=== PATIENT | female | born 1945 | race Caucasian/White ===

== ENCOUNTER 2016-07-18 00:06 | Emergency (ER) | payer MEDICARE, OTHER ==
[~2016-07-18] VITALS: Ht 165.1 cm; Wt 65.0 kg
[2016-07-18] MEDS ORDERED: LORazepam 2 MG/ML VIAL IV PUSH ONE ×2 (00:30→03:15)
[2016-07-18] MEDS ORDERED: SODIUM CHLOR 0.9% 250 ML INJ 250 ML IV ONE (00:30)
[2016-07-18] MEDS ORDERED: RISP1SOL PO (00:31)
[2016-07-18] MEDS ORDERED: VALP250S2 PO (00:31)
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
[2016-07-18 01:04] LABS: HEMATOCRIT 29.8 % (35.0-46.0); MEAN CELL VOLUME 75.7 FL (80.0-100.0); MEAN CORPUSCULAR HEMOGLOBIN 24.4 PG (27.0-34.0); MEAN CORPUSCULAR HGB CONC 32.3 % (32.0-36.0); PLATELET COUNT 87 TH/MM3 (150-450); RED BLOOD COUNT 3.94 MIL/MM3 (4.00-5.30); RED CELL DISTRIBUTION WIDTH 16.9 % (11.6-17.2)
[2016-07-18 01:07] LABS: HEMO FLAGS AUTO DIFF
[2016-07-18 01:12] LABS: PROTHROMBIN TIME - PATIENT 11.2 SEC (9.8-11.6)
[2016-07-18 01:25] VITALS: BP 124/60; PULSE 83; RESP 16; TEMP 98.5; O2SAT 100
[2016-07-18 01:26] LABS: ALT (GPT) 8 U/L (10-53); ANION GAP 6 MEQ/L (5-15); AST (GOT) 13 U/L (15-37); BICARBONATE 29.6 MEQ/L (21.0-32.0); BLOOD UREA NITROGEN 15 MG/DL (7-18); CHLORIDE 105 MEQ/L (98-107); GLOMERULAR FILTRATION RATE 66 ML/MIN (>89); POTASSIUM 3.9 MEQ/L (3.5-5.1); SODIUM (NA) 141 MEQ/L (136-145)
[2016-07-18 01:29] LABS: ACETAMINOPHEN LESS THAN 2.0 MCG/ML (10.0-30.0); ALKALINE PHOSPHATASE 62 U/L (45-117); TOTAL BILIRUBIN ADULT 0.3 MG/DL (0.2-1.0)
[2016-07-18 01:32] VITALS: O2SAT 100
[2016-07-18 01:33] LABS: BANDS 1 % (0-6); EOSINOPHILS 1 % (0-4); NEUTROPHIL # MANUAL DIFF 2.6 TH/MM3 (1.8-7.7); POLYS (SEG NEUTROPHILS) 50 % (16-70); SCAN/DIFF FINAL DIFF MANUAL; WBC DIFF SAMPLE 100
[2016-07-18 01:34] LABS: PLATELET ESTIMATE SMEAR LOW (NORMAL); PLATELET MORPHOLOGY NORMAL (NORMAL)
[2016-07-18 03:51] LABS: BLOOD, URINE NEG (NEG); GLUCOSE,URINE NEG (NEG); KETONE, URINE NEG (NEG); NITRITE,URINE NEG (NEG); PH, URINE 7.5 (5.0-8.5); SQUAMOUS EPITHELIAL CELL URINE <1 /hpf (0-5); URINE COLOR LIGHT-YELLOW (YELLW/STRAW)
[2016-07-18 03:52] LABS: COMMENT (UR) CULT NOT INDICATED; CULTURE IF INDICATED CULT NOT INDICATED
[2016-07-18 03:57] LABS: AMPHETAMINE, URINE NEG (NEG); BARBITURATES, URINE NEG (NEG); COCAINE, URINE NEG (NEG)
--- NOTE | 2016-07-18 04:13 | RADRPT ---
EXAM DATE/TIME: 07/18/2016 03:55 [facility] COMPARISON: No previous studies available for comparison. INDICATIONS : Altered mental status. RADIATION DOSE: 29.78 CTDIvol (mGy) MEDICAL HISTORY : Dementia. Alzheimer's. SURGICAL HISTORY : None. ENCOUNTER: Initial ACUITY: 1 day PAIN SCALE: Non-responsive LOCATION: cranial TECHNIQUE: Multiple contiguous axial images were obtained of the head. Using automated exposure control and adj ustment of the mA and/or kV according to patient size, radiation dose was kept as low as reasonably a chievable to obtain optimal diagnostic quality images. FINDINGS: CEREBRUM: The ventricles are normal for age. No evidence of midline shift, mass lesion, hemorrhage or acute in farction. No extra-axial fluid collections are seen. POSTERIOR FOSSA: The cerebellum and brainstem are intact. The 4th ventricle is midline. The cerebellopontine angle i s unremarkable. EXTRACRANIAL: The visualized portion of the orbits is intact. SKULL: The calvaria is intact. No evidence of skull fracture. CONCLUSION: 1. No evidence of acute intracranial pathology. No masses are identified. Russell Bustillos MD on July 18, 2016 at 4:09 Board Certified Radiologist. This report was verified electronically.
[2016-07-18 04:40] VITALS: BP 98/54; PULSE 71; RESP 15; O2SAT 95
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
[2016-07-18 09:36] VITALS: BP 122/85; PULSE 62; RESP 18; O2SAT 96
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
[2016-07-18 12:00] VITALS: BP 133/65; PULSE 68; RESP 20; O2SAT 98
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
== END 2016-07-18 16:46 | disposition home or self-care (01) ==
LOC: NEPE 00:06 → NEPA 16:46
DX: F03.91 Unspecified dementia, unspecified severity, with behavioral disturbance (principal); G30.9 Alzheimer's disease, unspecified; F20.9 Schizophrenia, unspecified; G40.909 Epilepsy, unspecified, not intractable, without status epilepticus; Z88.5 Allergy status to narcotic agent
CPT/HCPCS: 70450; 72125; 80053; 80164; 80307; 80320; 81001; 85007; 85027; 85610; 96374; 96376; 99284; J2060; J7050; P9612; 80329; G0480

== ENCOUNTER 2016-07-20 15:32 | Emergency (ER) | payer MEDICARE, OTHER ==
[~2016-07-20] VITALS: Ht 170.2 cm; Wt 75.0 kg
[~2016-07-20 15:32] MED LIST: RISP1SOL PO; VALP250S2 PO
[2016-07-20 15:54] VITALS: BP 120/60; PULSE 76; RESP 20; TEMP 98.5; O2SAT 94
[2016-07-20] MEDS ORDERED: SODIUM CHLOR 0.9% 1000 ML INJ 1,000 ML IV ONE (16:08)
[2016-07-20] MEDS ORDERED: SODIUM CHLORIDE 0.9% FLUSH 5 ML FLUSH IVF PRN (16:15)
[2016-07-20] MEDS ORDERED: LORazepam 2 MG/ML VIAL IVS ONE (16:15)
--- NOTE | 2016-07-20 16:19 | PD ---
HPI Chief Complaint: Altered Mental Status Time Seen by Provider: 16:04 Travel History International Travel<30 days: No Contact w/Intl Traveler<30days: No Traveled to known affect area: No History of Present Illness HPI Patient is a 71-year-old female who presents to emergency room from [facility] for evaluation of altered mental status. Patient has a history of Alzheimer's disease, dementia with behavioral disturbance, personality and behavioral disorders, and history of seizures currently on valproic acid 250 mg twice a day as well as risperidone 0.25 mg twice a day. As per OK, patient has been more agitated and more combative today when compared to baseline. Patient here for evaluation of altered mental status. Patient unable to provide history of present illness in the emergency room, patient with flight of ideas. PFSH Past Medical History Diminished Hearing: No ?: Not Menopausal: Yes Social History Alcohol Use: No Tobacco Use: No Substance Use: No Allergies-Medications (Allergen,Severity, Reaction): Coded Allergies: Codeine (Verified Allergy, Unknown, 07/18/16) Reported Meds & Prescriptions Reported Meds & Active Scripts Active Reported Valproic Acid Liq 250 Mg/5 Ml Syp 250 Mg PO BID Risperidone Liq (Risperidone) 1 Mg/Ml Soln 0.25 Mg PO BID Review of Systems ROS Limitations: Altered Mental Status General / Constitutional: No: Fever Eyes: No: Visual changes HENT: No: Headaches Cardiovascular: No: Chest Pain or Discomfort Respiratory: No: Shortness of Breath Gastrointestinal: No: Abdominal Pain Genitourinary: No: Dysuria Musculoskeletal: No: Pain Skin: No Rash Neurologic: No: Weakness Psychiatric: No: Depression Endocrine: No: Polydipsia Hematologic/Lymphatic: No: Easy Bruising Physical Exam Narrative GENERAL: aggitated, NAD SKIN: Warm and dry. HEAD: Atraumatic. Normocephalic. EYES: Pupils equal and round. No scleral icterus. No injection or drainage. ENT: No nasal bleeding or discharge. Mucous membranes pink and moist. NECK: Trachea midline. No JVD. CARDIOVASCULAR: Regular rate and rhythm. No murmur appreciated. RESPIRATORY: No accessory muscle use. Clear to auscultation. Breath sounds equal bilaterally. GASTROINTESTINAL: Abdomen soft, non-tender, nondistended. Hepatic and splenic margins not palpable. MUSCULOSKELETAL: No obvious deformities. No clubbing. No cyanosis. No edema. NEUROLOGICAL: Awake and alert. No obvious cranial nerve deficits. Motor grossly within normal limits. Normal speech. PSYCHIATRIC: Patient agitated with a flight of ideas Data Data Last Documented VS Vital Signs Date Time Temp Pulse Resp B/P Pulse Ox O2 Delivery O2 Flow Rate FiO2 07/20/16 22:24 72 16 101/58 95 07/20/16 19:35 Room Air 07/20/16 15:54 98.5 Orders Complete Blood Count With Diff (07/20/16 16:08) Valproic Acid (Depakene) (07/20/16 16:08) Drug Screen, Random Urine (07/20/16 16:08) Blood Glucose (07/20/16 16:08) Ecg Monitoring (07/20/16 16:08) Iv Access Insert/Monitor (07/20/16 16:08) Oximetry (07/20/16 16:08) Comprehensive Metabolic Panel (07/20/16 16:08) Sodium Chlor 0.9% 1000 Ml Inj (Ns 1000 M (07/20/16 16:08) Sodium Chloride 0.9% Flush (Ns Flush) (07/20/16 16:15) Lorazepam Inj (Ativan Inj) (07/20/16 16:15) Ua Includes Microscopic (07/20/16 16:08) Ct Brain W/O Iv Contrast(Rout) (07/20/16 ) Electrocardiogram (07/20/16 ) Restraints Non-Violent SARAH.Q3H (07/20/16 17:10) Labs Laboratory Tests Test 07/20/16 07/20/16 16:55 17:20 White Blood Count 4.7 TH/MM3 Red Blood Count 4.21 MIL/MM3 Hemoglobin 10.0 GM/DL Hematocrit 31.9 % Mean Corpuscular Volume 75.8 FL Mean Corpuscular Hemoglobin 23.7 PG Mean Corpuscular Hemoglobin 31.3 % Concent Red Cell Distribution Width 17.0 % Platelet Count 80 TH/MM3 Mean Platelet Volume 10.0 FL Neutrophils (%) (Auto) 56.4 % Lymphocytes (%) (Auto) 26.7 % Monocytes (%) (Auto) 15.6 % Eosinophils (%) (Auto) 1.0 % Basophils (%) (Auto) 0.3 % Neutrophils # (Auto) 2.6 TH/MM3 Lymphocytes # (Auto) 1.2 TH/MM3 Monocytes # (Auto) 0.7 TH/MM3 Eosinophils # (Auto) 0.0 TH/MM3 Basophils # (Auto) 0.0 TH/MM3 CBC Comment DIFF FINAL Differential Comment Sodium Level 139 MEQ/L Potassium Level 4.4 MEQ/L Chloride Level 105 MEQ/L Carbon Dioxide Level 27.7 MEQ/L Anion Gap 6 MEQ/L Blood Urea Nitrogen 15 MG/DL Creatinine 0.78 MG/DL Estimat Glomerular Filtration 72 ML/MIN Rate Random Glucose 88 MG/DL Calcium Level 8.2 MG/DL Total Bilirubin 0.3 MG/DL Aspartate Amino Transf 19 U/L (AST/SGOT) Alanine Aminotransferase 10 U/L (ALT/SGPT) Alkaline Phosphatase 59 U/L Total Protein 7.7 GM/DL Albumin 2.6 GM/DL Valproic Acid (Depakene) Level 54 MCG/ML Urine Color YELLOW Urine Turbidity CLEAR Urine pH 6.5 Urine Specific [place] 1.011 Urine Protein NEG mg/dL Urine Glucose (UA) NEG mg/dL Urine Ketones NEG mg/dL Urine Occult Blood TRACE Urine Nitrite NEG Urine Bilirubin NEG Urine Urobilinogen 4.0 MG/DL Urine Leukocyte Esterase NEG Urine RBC 2 /hpf Urine WBC 1 /hpf Urine Mucus FEW /lpf Microscopic Urinalysis Comment Urine Opiates Screen NEG Urine Barbiturates Screen NEG Urine Amphetamines Screen NEG Urine Benzodiazepines Screen NEG Urine Cocaine Screen NEG Urine Cannabinoids Screen NEG MDM Medical Decision Making Medical Screen Exam Complete: Yes Emergency Medical Condition: Yes Interpretation(s) EKG: NSR at 98 BPM, qt/qtc: 369/424, no acute changes Vital Signs Date Time Temp Pulse Resp B/P Pulse Ox O2 Delivery O2 Flow Rate FiO2 07/20/16 15:54 98.5 76 20 120/60 94 Differential Diagnosis UTI, electrolyte abnormality, acute delirium, intracranial hemorrhage, medication reaction Narrative Course Patient is a 71-year-old female who presents to emergency room with complaints of altered mental status. As per patient's half-way, patient has dementia and a history of behavioral disturbance that baseline. Reports that she has been acting more aggressive today. Plan to obtain basic labs on patient as well as a ua. ct of head to evaluate for possible intracranial pathology pt signed out to care of dr lopez at change of shift Estefani Carlin DO Jul 20, 2016 16:18
[2016-07-20 17:35] LABS: AUTOMATED NEUTROPHIL # 2.6 TH/MM3 (1.8-7.7); BASOPHIL % 0.3 % (0.0-2.0); HEMATOCRIT 31.9 % (35.0-46.0); LYMPH % 26.7 % (9.0-44.0); LYMPHOCYTE # 1.2 TH/MM3 (1.0-4.8); MEAN CELL VOLUME 75.8 FL (80.0-100.0); MEAN CORPUSCULAR HEMOGLOBIN 23.7 PG (27.0-34.0); MEAN CORPUSCULAR HGB CONC 31.3 % (32.0-36.0); MONO % 15.6 % (0.0-8.0); NEUT % 56.4 % (16.0-70.0); PLATELET COUNT 80 TH/MM3 (150-450); RED BLOOD COUNT 4.21 MIL/MM3 (4.00-5.30); WHITE BLOOD COUNT 4.7 TH/MM3 (4.0-11.0)
--- NOTE | 2016-07-20 17:37 | PD ---
Physical Exam Date Seen by Provider: Jul 20, 2016 Time Seen by Provider: 17:36 Narrative The patient is a 71-year-old female was initially evaluated by the previous physician, Dr. Carlin. Please refer to the initial history, physical, diagnostic evaluation, and treatment modality plan. The patient was signed out of 5 PM with laboratory evaluation, UA, and CT pending. Data Data Last Documented VS Vital Signs Date Time Temp Pulse Resp B/P Pulse Ox O2 Delivery O2 Flow Rate FiO2 07/20/16 18:25 70 18 136/62 94 Room Air 07/20/16 15:54 98.5 Orders Complete Blood Count With Diff (07/20/16 16:08) Valproic Acid (Depakene) (07/20/16 16:08) Drug Screen, Random Urine (07/20/16 16:08) Blood Glucose (07/20/16 16:08) Ecg Monitoring (07/20/16 16:08) Iv Access Insert/Monitor (07/20/16 16:08) Oximetry (07/20/16 16:08) Comprehensive Metabolic Panel (07/20/16 16:08) Sodium Chlor 0.9% 1000 Ml Inj (Ns 1000 M (07/20/16 16:08) Sodium Chloride 0.9% Flush (Ns Flush) (07/20/16 16:15) Lorazepam Inj (Ativan Inj) (07/20/16 16:15) Ua Includes Microscopic (07/20/16 16:08) Ct Brain W/O Iv Contrast(Rout) (07/20/16 ) Electrocardiogram (07/20/16 ) Restraints Non-Violent SARAH.Q3H (07/20/16 17:10) Labs Laboratory Tests Test 07/20/16 07/20/16 16:55 17:20 White Blood Count 4.7 TH/MM3 Red Blood Count 4.21 MIL/MM3 Hemoglobin 10.0 GM/DL Hematocrit 31.9 % Mean Corpuscular Volume 75.8 FL Mean Corpuscular Hemoglobin 23.7 PG Mean Corpuscular Hemoglobin 31.3 % Concent Red Cell Distribution Width 17.0 % Platelet Count 80 TH/MM3 Mean Platelet Volume 10.0 FL Neutrophils (%) (Auto) 56.4 % Lymphocytes (%) (Auto) 26.7 % Monocytes (%) (Auto) 15.6 % Eosinophils (%) (Auto) 1.0 % Basophils (%) (Auto) 0.3 % Neutrophils # (Auto) 2.6 TH/MM3 Lymphocytes # (Auto) 1.2 TH/MM3 Monocytes # (Auto) 0.7 TH/MM3 Eosinophils # (Auto) 0.0 TH/MM3 Basophils # (Auto) 0.0 TH/MM3 CBC Comment DIFF FINAL Differential Comment Sodium Level 139 MEQ/L Potassium Level 4.4 MEQ/L Chloride Level 105 MEQ/L Carbon Dioxide Level 27.7 MEQ/L Anion Gap 6 MEQ/L Blood Urea Nitrogen 15 MG/DL Creatinine 0.78 MG/DL Estimat Glomerular Filtration 72 ML/MIN Rate Random Glucose 88 MG/DL Calcium Level 8.2 MG/DL Total Bilirubin 0.3 MG/DL Aspartate Amino Transf 19 U/L (AST/SGOT) Alanine Aminotransferase 10 U/L (ALT/SGPT) Alkaline Phosphatase 59 U/L Total Protein 7.7 GM/DL Albumin 2.6 GM/DL Valproic Acid (Depakene) Level 54 MCG/ML Urine Color YELLOW Urine Turbidity CLEAR Urine pH 6.5 Urine Specific [place] 1.011 Urine Protein NEG mg/dL Urine Glucose (UA) NEG mg/dL Urine Ketones NEG mg/dL Urine Occult Blood TRACE Urine Nitrite NEG Urine Bilirubin NEG Urine Urobilinogen 4.0 MG/DL Urine Leukocyte Esterase NEG Urine RBC 2 /hpf Urine WBC 1 /hpf Urine Mucus FEW /lpf Microscopic Urinalysis Comment Urine Opiates Screen NEG Urine Barbiturates Screen NEG Urine Amphetamines Screen NEG Urine Benzodiazepines Screen NEG Urine Cocaine Screen NEG Urine Cannabinoids Screen NEG [facility] Medical Record Reviewed: Yes Supervised Visit with JOSHUA: No Interpretation(s) EKG reveals normal sinus rhythm with a rate of 98. No ischemic changes or ectopy noted. Laboratory Tests Test 07/20/16 07/20/16 16:55 17:20 White Blood Count 4.7 TH/MM3 Red Blood Count 4.21 MIL/MM3 Hemoglobin 10.0 GM/DL Hematocrit 31.9 % Mean Corpuscular Volume 75.8 FL Mean Corpuscular Hemoglobin 23.7 PG Mean Corpuscular Hemoglobin 31.3 % Concent Red Cell Distribution Width 17.0 % Platelet Count 80 TH/MM3 Mean Platelet Volume 10.0 FL Neutrophils (%) (Auto) 56.4 % Lymphocytes (%) (Auto) 26.7 % Monocytes (%) (Auto) 15.6 % Eosinophils (%) (Auto) 1.0 % Basophils (%) (Auto) 0.3 % Neutrophils # (Auto) 2.6 TH/MM3 Lymphocytes # (Auto) 1.2 TH/MM3 Monocytes # (Auto) 0.7 TH/MM3 Eosinophils # (Auto) 0.0 TH/MM3 Basophils # (Auto) 0.0 TH/MM3 CBC Comment DIFF FINAL Differential Comment Sodium Level 139 MEQ/L Potassium Level 4.4 MEQ/L Chloride Level 105 MEQ/L Carbon Dioxide Level 27.7 MEQ/L Anion Gap 6 MEQ/L Blood Urea Nitrogen 15 MG/DL Creatinine 0.78 MG/DL Estimat Glomerular Filtration 72 ML/MIN Rate Random Glucose 88 MG/DL Calcium Level 8.2 MG/DL Total Bilirubin 0.3 MG/DL Aspartate Amino Transf 19 U/L (AST/SGOT) Alanine Aminotransferase 10 U/L (ALT/SGPT) Alkaline Phosphatase 59 U/L Total Protein 7.7 GM/DL Albumin 2.6 GM/DL Valproic Acid (Depakene) Level 54 MCG/ML Urine Color YELLOW Urine Turbidity CLEAR Urine pH 6.5 Urine Specific [place] 1.011 Urine Protein NEG mg/dL Urine Glucose (UA) NEG mg/dL Urine Ketones NEG mg/dL Urine Occult Blood TRACE Urine Nitrite NEG Urine Bilirubin NEG Urine Urobilinogen 4.0 MG/DL Urine Leukocyte Esterase NEG Urine RBC 2 /hpf Urine WBC 1 /hpf Urine Mucus FEW /lpf Microscopic Urinalysis Comment Urine Opiates Screen NEG Urine Barbiturates Screen NEG Urine Amphetamines Screen NEG Urine Benzodiazepines Screen NEG Urine Cocaine Screen NEG Urine Cannabinoids Screen NEG Last Impressions Head CT 07/20/16 0000 Signed Impressions: Service Date/Time: Wednesday, July 20, 2016 18:04 - CONCLUSION: No acute abnormality is seen. There is age related atrophy. Eric Carlson MD Differential Diagnosis Differential diagnosis includes delirium, dementia with agitation, psychosis, UTI, subarachnoid hemorrhage, hyponatremia, dehydration, medication side effect. Narrative Course The patient is a 71-year-old female was initially evaluated by the previous physician, Dr. Carlin. Please refer to the initial history, physical, diagnostic evaluation, treatment modality plan. The patient was signed out at 5 PM laboratory evaluation, UA, and CT pending. Laboratory evaluation is unremarkable. UA reveals urobilinogen, but no infection. Sodium is normal. CT the brain is negative except for atrophy. The patient may have delirium secondary to medications, is medically stable to go back to the detention. Diagnosis Primary Impression: Dementia with behavioral disturbance Qualified Code: F03.91 - Dementia with behavioral disturbance, unspecified dementia type Patient Instructions: General Instructions Additional Instruction: Follow-up with the physician at the detention. Return if symptoms worsen or progress. Disposition: 03 DISCHARGE TO SNF (transfer back to the detention) Condition: Stable Arvind Rubin MD Jul 20, 2016 17:37
[2016-07-20 17:48] LABS: HEMO FLAGS DIFF FINAL
[2016-07-20 17:49] LABS: ALKALINE PHOSPHATASE 59 U/L (45-117); ALT (GPT) 10 U/L (10-53); TOTAL BILIRUBIN ADULT 0.3 MG/DL (0.2-1.0)
[2016-07-20 17:54] LABS: ANION GAP 6 MEQ/L (5-15); BICARBONATE 27.7 MEQ/L (21.0-32.0); BLOOD UREA NITROGEN 15 MG/DL (7-18); CHLORIDE 105 MEQ/L (98-107); GLOMERULAR FILTRATION RATE 72 ML/MIN (>89); SODIUM (NA) 139 MEQ/L (136-145)
[2016-07-20 17:55] LABS: AST (GOT) 19 U/L (15-37); POTASSIUM 4.4 MEQ/L (3.5-5.1)
[2016-07-20 17:56] LABS: BLOOD, URINE TRACE (NEG); GLUCOSE,URINE NEG (NEG); KETONE, URINE NEG (NEG); MUCUS URINE FEW /lpf (OCC); NITRITE,URINE NEG (NEG); PH, URINE 6.5 (5.0-8.5); URINE COLOR YELLOW (YELLW/STRAW)
[2016-07-20 17:58] LABS: AMPHETAMINE, URINE NEG (NEG); BARBITURATES, URINE NEG (NEG); COCAINE, URINE NEG (NEG)
[2016-07-20 18:25] VITALS: BP 136/62; PULSE 70; RESP 18; O2SAT 94
--- NOTE | 2016-07-20 19:21 | RADRPT ---
EXAM DATE/TIME: 07/20/2016 18:04 [facility] COMPARISON: CT BRAIN W/O CONTRAST, July 18, 2016, 10:02. INDICATIONS : Increased altered mental status and combativeness. RADIATION DOSE: 56.35 CTDIvol (mGy) MEDICAL HISTORY : Alzheimer's Dementia. Seizures. SURGICAL HISTORY : None. ENCOUNTER: Initial ACUITY: 1 day PAIN SCALE: Non-responsive LOCATION: cranial TECHNIQUE: Multiple contiguous axial images were obtained of the head. Using automated exposure control and adj ustment of the mA and/or kV according to patient size, radiation dose was kept as low as reasonably a chievable to obtain optimal diagnostic quality images. FINDINGS: CEREBRUM: The ventricles and cortical sulci are mildly widened. No evidence of midline shift, mass lesion, hem orrhage or acute infarction. No extra-axial fluid collections are seen. POSTERIOR FOSSA: The cerebellum and brainstem are intact. The 4th ventricle is midline. The cerebellopontine angle i s unremarkable. EXTRACRANIAL: The visualized portion of the orbits is intact. SKULL: The calvaria is intact. No evidence of skull fracture. CONCLUSION: No acute abnormality is seen. There is age related atrophy. Eric Carlson MD on July 20, 2016 at 19:19 Board Certified Radiologist. This report was verified electronically.
[2016-07-20 19:35] VITALS: BP 98/52; PULSE 68; RESP 16; O2SAT 97
[2016-07-20 22:24] VITALS: BP 101/58
--- NOTE | 2016-07-21 16:24 | EKG ---
Date Performed: 07/20/2016 Time Performed: 16:49:07 PTAGE: 71 years EKG: Sinus rhythm NORMAL ECG NO PREVIOUS TRACING DOCTOR: Franco Rincon Interpretating Date/Time 07/21/2016 16:22:31
== END 2016-07-21 00:16 ==
LOC: NEPA 15:32
DX: F03.91 Unspecified dementia, unspecified severity, with behavioral disturbance (principal); Z79.899 Other long term (current) drug therapy
CPT/HCPCS: 70450; 80053; 80164; 80307; 81001; 85025; 93005; 96374; 99285; J2060; J7030

== ENCOUNTER 2016-07-23 18:07 | Observation (INO) | payer MEDICARE ==
[~2016-07-23] VITALS: Ht 162.6 cm; Wt 93.7 kg
[2016-07-23 18:20] VITALS: BP 135/62; PULSE 83; RESP 20; TEMP 98.7; O2SAT 97
[2016-07-23] MEDS ORDERED: SODIUM CHLORIDE 0.9% FLUSH 5 ML FLUSH IVF PRN (18:45)
[2016-07-23] MEDS ORDERED: HALOPERIDOL LACTATE 5 MG/ML AMP IM ONE ×2 (18:45→20:30)
[2016-07-23 19:43] LABS: AUTOMATED NEUTROPHIL # 2.7 TH/MM3 (1.8-7.7); BASOPHIL % 0.2 % (0.0-2.0); EOSINOPHIL % 1.1 % (0.0-4.0); HEMATOCRIT 30.9 % (35.0-46.0); LYMPH % 20.4 % (9.0-44.0); LYMPHOCYTE # 0.9 TH/MM3 (1.0-4.8); MEAN CELL VOLUME 75.6 FL (80.0-100.0); MEAN CORPUSCULAR HEMOGLOBIN 23.7 PG (27.0-34.0); MEAN CORPUSCULAR HGB CONC 31.3 % (32.0-36.0); MONO % 15.2 % (0.0-8.0); NEUT % 63.1 % (16.0-70.0); PLATELET COUNT 69 TH/MM3 (150-450); RED BLOOD COUNT 4.09 MIL/MM3 (4.00-5.30); WHITE BLOOD COUNT 4.2 TH/MM3 (4.0-11.0)
[2016-07-23 19:48] LABS: HEMO FLAGS AUTO DIFF
[2016-07-23 19:56] LABS: ANION GAP 7 MEQ/L (5-15); AST (GOT) 14 U/L (15-37); BICARBONATE 30.8 MEQ/L (21.0-32.0); BLOOD UREA NITROGEN 9 MG/DL (7-18); CHLORIDE 104 MEQ/L (98-107); GLOMERULAR FILTRATION RATE 61 ML/MIN (>89); POTASSIUM 4.2 MEQ/L (3.5-5.1); SODIUM (NA) 142 MEQ/L (136-145)
[2016-07-23 19:58] LABS: APTT (PATIENT) 25.2 SEC (24.3-30.1); PROTHROMBIN TIME - PATIENT 11.4 SEC (9.8-11.6)
[2016-07-23 20:07] LABS: ALKALINE PHOSPHATASE 56 U/L (45-117); ALT (GPT) 10 U/L (10-53); TOTAL BILIRUBIN ADULT 0.3 MG/DL (0.2-1.0)
--- NOTE | 2016-07-23 20:31 | RADRPT ---
EXAM DATE/TIME: 07/23/2016 19:56 [facility] COMPARISON: No previous studies available for comparison. INDICATIONS : Chest pain MEDICAL HISTORY : None. Alzheimer's dementia. seizures SURGICAL HISTORY : None. ENCOUNTER: Initial ACUITY: 1 day PAIN SCORE: 0/10 LOCATION: Bilateral chest FINDINGS: A single view of the chest demonstrates the lungs to be symmetrically aerated without evidence of mas s, infiltrate or effusion. The cardiomediastinal contours are unremarkable. Osseous structures are intact. CONCLUSION: No evidence of acute cardiopulmonary disease. Eric Lugo MD on July 23, 2016 at 20:29 Board Certified Radiologist. This report was verified electronically.
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
[2016-07-23 21:43] LABS: BANDS 3 % (0-6); EOSINOPHILS 1 % (0-4); NEUTROPHIL # MANUAL DIFF 2.6 TH/MM3 (1.8-7.7); POLYS (SEG NEUTROPHILS) 60 % (16-70); SCAN/DIFF FINAL DIFF MANUAL; WBC DIFF SAMPLE 100
[2016-07-23 21:44] LABS: PLATELET ESTIMATE SMEAR LOW (NORMAL); PLATELET MORPHOLOGY NORMAL (NORMAL)
[2016-07-23] MEDS ORDERED: LORazepam 2 MG/ML VIAL IV PUSH ONE (21:45)
[2016-07-23 22:20] VITALS: BP 147/70; PULSE 106; RESP 18; O2SAT 95
[2016-07-23 23:02] LABS: BACTERIA, URINE MANY /hpf; BLOOD, URINE SMALL (NEG); COMMENT (UR) CATH-CULTURE IND; CULTURE IF INDICATED CATH CULTURE IND; GLUCOSE,URINE NEG (NEG); KETONE, URINE NEG (NEG); MUCUS URINE FEW /lpf (OCC); NITRITE,URINE POS (NEG); PH, URINE 7.5 (5.0-8.5); URINE COLOR YELLOW (YELLW/STRAW)
[2016-07-23] MEDS ORDERED: cefTRIAXone INJ 1,000 MG in SODIUM CHLORIDE 0.9% INJ 100 ML IV ONE (23:15)
[2016-07-24] VITALS (8 sets, daily range): BP systolic 93–145; BP diastolic 54–92; PULSE 69–107; RESP 17–19; TEMP 96.2–99.1; O2SAT 18–96
[2016-07-24] MEDS ORDERED: SODIUM CHLORIDE 0.9% FLUSH 5 ML FLUSH FLUSH PRN
[2016-07-24] MEDS ORDERED: NALOXONE HCL 0.4 MG/ML AMP IV PRN
[2016-07-24] MEDS ORDERED: LORazepam 2 MG/ML VIAL IV PUSH PRN (06:30)
[2016-07-24] MEDS ORDERED: HALOPERIDOL LACTATE 5 MG/ML AMP IV PUSH ONE (07:30)
--- NOTE | 2016-07-24 08:51 | HHI.HP ---
HPI Service [facility] Hospitalists Primary Care Physician Unknown Admission Diagnosis UTI, Altered mental status, Behavioral disorder. Diagnoses: Chief Complaint: Dementia Agressive behaviour Travel History International Travel<30 Days: No Contact w/Intl Traveler <30 Da: No Traveled to Known Affected Are: No History of Present Illness 71 yo female with h/o Lewy Body Dementia who presented to [facility] ED due to repetitive angry and combative outbursts at the care home she resides at. The patient is severely demented with no family at the bedside and was given Ativan as well as Haldol in the ED therefore the history is obtained from chart review. Patient has had multiple presentations to the ED for similar episodes per her sisters report. Previously patient has been on Seroquel and Depakote but unclear when or why these medications were discontinued. Additionally, she has been on benzodiazepine in the past but this was stopped as well. Patient had a head CT scan 07/18/16 which failed to show any acute findings. Review of Systems ROS Limitations: Altered Mental Status (Severe dementia) Past Family Social History Past Medical History Lewy body dementia Seizures Anxiety Past Surgical History Unable to obtain due to severe dementia/AMS Reported Medications Valproic Acid Liq 250 Mg/5 Ml Syp 250 Mg PO BID Risperidone Liq (Risperidone) 1 Mg/Ml Soln 0.25 Mg PO BID Allergies: Coded Allergies: Codeine (Verified Allergy, Unknown, 07/23/16) Active Ordered Medications Active Medications Ceftriaxone Sodium/Sodium Chloride (Rocephin Inj/NS Inj) 100 ml @ 200 mls/hr DAILY IV; Start 07/25/16 at 09:00 Ceftriaxone Sodium/Sodium Chloride (Rocephin Inj/NS Inj) 100 ml @ 200 mls/hr ONCE ONCE IV Last administered on 07/23/16t 23:13; Admin Dose 200 MLS/HR; Start 07/23/16 at 23:15; Stop 07/23/16 at 23:44; Status DC Ceftriaxone Sodium/Sodium Chloride (Rocephin Inj/NS Inj) 100 ml @ 200 mls/hr Q12H IV; Start 07/24/16 at 11:00; Stop 07/24/16 at 11:00; Status DC Haloperidol Lactate (Haldol Inj) 2 mg ONCE ONCE IM Last administered on 19:16; Admin Dose 2 MG; Start 07/23/16 at 18:45; Stop 07/23/16 at 18:46; Status DC Haloperidol Lactate (Haldol Inj) 5 mg ONCE ONCE IM Last administered on 20:32; Admin Dose 5 MG; Start 07/23/16 at 20:30; Stop 07/23/16 at 20:31; Status DC Haloperidol Lactate 2 mg 2 mg ONCE ONCE IV PUSH; Start 07/24/16 at 07:30; Stop 07/24/16 at 07:53; Status DC IV Flush (NS Flush) 2 ml BID FLUSH; Start 07/24/16 at 09:00 IV Flush (NS Flush) 2 ml UNSCH PRN FLUSH; Start 07/24/16 at 00:00 IV Flush (NS Flush) 2 ml UNSCH PRN IVF; Start 07/23/16 at 18:45; Stop 07/23/16 at 23:55; Status DC Lorazepam 1 mg 1 mg ONCE ONCE IV PUSH Last administered on 07/23/16 22:20; Admin Dose 1 MG; Start 07/23/16 at 21:45; Stop 07/23/16 at 21:46; Status DC Lorazepam 1 mg 1 mg Q4H PRN IV PUSH Last administered on 07/24/16 06:47; Admin Dose 1 MG; Start 07/24/16 at 06:30; Stop 07/24/16 at 08:51; Status DC Naloxone HCl (Narcan Inj) 0.4 mg UNSCH PRN IV; Start 07/24/16 at 00:00 Family History Unable to obtain due to severe dementia/AMS Social History Unable to obtain due to severe dementia/AMS Physical Exam Vital Signs Vital Signs Date Time Temp Pulse Resp B/P Pulse Ox O2 Delivery O2 Flow Rate FiO2 07/24/16 05:36 96.2 73 18 120/62 96 07/24/16 04:51 69 07/24/16 01:39 73 16 141/74 96 07/23/16 22:20 106 18 147/70 95 Room Air 07/23/16 18:27 83 17 07/23/16 18:20 98.7 83 20 135/62 97 Physical Exam GENERAL: This is a well-nourished, well-developed patient, AMS SKIN: No rashes, ecchymoses or lesions. Cool and dry. HEAD: Atraumatic. Normocephalic. No temporal or scalp tenderness. EYES: Pupils equal round and reactive. Extraocular motions intact. No scleral icterus. No injection or drainage. ENT: Nose without bleeding, purulent drainage or septal hematoma. Throat without erythema, tonsillar hypertrophy or exudate. Uvula midline. Airway patent. NECK: Trachea midline. No JVD or lymphadenopathy. Supple, nontender, no meningeal signs. CARDIOVASCULAR: Regular rate and rhythm without murmurs, gallops, or rubs. RESPIRATORY: Clear to auscultation. Breath sounds equal bilaterally. No wheezes , rales, or rhonchi. GASTROINTESTINAL: Abdomen soft, non-tender, nondistended. No hepato-splenomegaly , or palpable masses. No guarding. MUSCULOSKELETAL: Extremities without clubbing, cyanosis, or edema. No joint tenderness, effusion, or edema noted. No calf tenderness. NEUROLOGICAL: Unable to obtain. AMS. Not following any commands. Laboratory Laboratory Tests Test 07/23/16 07/23/16 18:55 22:40 White Blood Count 4.2 Red Blood Count 4.09 Hemoglobin 9.7 Hematocrit 30.9 Mean Corpuscular Volume 75.6 Mean Corpuscular Hemoglobin 23.7 Mean Corpuscular Hemoglobin 31.3 Concent Red Cell Distribution Width 17.0 Platelet Count 69 Mean Platelet Volume 10.5 Neutrophils (%) (Auto) 63.1 Lymphocytes (%) (Auto) 20.4 Monocytes (%) (Auto) 15.2 Eosinophils (%) (Auto) 1.1 Basophils (%) (Auto) 0.2 Neutrophils # (Auto) 2.7 Lymphocytes # (Auto) 0.9 Monocytes # (Auto) 0.6 Eosinophils # (Auto) 0.0 Basophils # (Auto) 0.0 CBC Comment AUTO DIFF Differential Total Cells 100 Counted Neutrophils % (Manual) 60 Band Neutrophils % 3 Lymphocytes % 26 Monocytes % 10 Eosinophils % 1 Neutrophils # (Manual) 2.6 Differential Comment FINAL DIFF MANUAL Platelet Estimate LOW Platelet Morphology Comment NORMAL Prothrombin Time 11.4 Prothromb Time International 1.0 Ratio Activated Partial 25.2 Thromboplast Time Sodium Level 142 Potassium Level 4.2 Chloride Level 104 Carbon Dioxide Level 30.8 Anion Gap 7 Blood Urea Nitrogen 9 Creatinine 0.91 Estimat Glomerular Filtration 61 Rate Random Glucose 93 Calcium Level 8.3 Total Bilirubin 0.3 Aspartate Amino Transf 14 (AST/SGOT) Alanine Aminotransferase 10 (ALT/SGPT) Alkaline Phosphatase 56 Troponin I LESS THAN 0.02 Total Protein 7.6 Albumin 2.6 Thyroid Stimulating Hormone 1.930 3rd Gen Urine Color YELLOW Urine Turbidity CLEAR Urine pH 7.5 Urine Specific [place] 1.010 Urine Protein NEG Urine Glucose (UA) NEG Urine Ketones NEG Urine Occult Blood SMALL Urine Nitrite POS Urine Bilirubin NEG Urine Urobilinogen 4.0 Urine Leukocyte Esterase NEG Urine RBC LESS THAN 1 Urine WBC 1 Urine Bacteria MANY Urine Mucus FEW Microscopic Urinalysis Comment CATH-CULTURE IND Date/Time Procedure Status Source Growth 07/23/16 22:40 Urine Culture Received Urine Catheterized Urine Pending Result Diagram: 07/23/[id number] Imaging Last Impressions Chest X-Ray 07/23/161839 Signed Impressions: Service Date/Time: Saturday, July 23, 2016 19:56 - CONCLUSION: No evidence of acute cardiopulmonary disease. Eric Lugo MD Assessment and Plan Assessment and Plan 71 yo female with h/o Lewy Body Dementia who presented to [facility] ED due to repetitive angry and combative outbursts at the care home she resides at. Dementia with behavioral disturbance/combative outbursts - Discontinue Ativan - c/w Haldol prn - Consult psychiatry for assistance with medication adjustments - Fall and aspiration precautions - Case management consulted to assist with d/c plan/placement UTI - follow up on UCX results - IV Rocephin Anemia - mild - iron studies ordered - am labs to monitor trend DVT prophylaxis - bilateral SCD/PIETRO hose Written by Genet Singh, acting as scribe for Dr. Waters on 07/24/16 at 08: 48. The documentation accurately reflects the work performed [id number] by me on at 08:48. Genet Singh PA-C Jul 24, 2016 08:51 Chyna Waters DO Jul 24, 2016 18:04
[2016-07-24] MEDS: SODIUM CHLORIDE 0.9% FLUSH 5 ML FLUSH FLUSH SCH ×2 (09:00→21:34)
[2016-07-24] MEDS ORDERED: cefTRIAXone INJ 1,000 MG in SODIUM CHLORIDE 0.9% INJ 100 ML IV SCH (11:00)
[2016-07-24 11:14] LABS: TRANSFERRIN IRON PROFILE 164 MG/DL (200-360)
--- NOTE | 2016-07-24 15:24 | PD.CONS ---
Provisional Diagnosis Admission Date Jul 23, 2016 at 23:57 [place]. Dementia with behavioral disturbances, history of schizophrenia History of Present Illness Service Psychiatry Consult Requested By Primary Care Physician Unknown HPI The patient is a 71 -year-old woman, domiciled in a residential facility, with psychiatric history of h/o Lewy Body Dementia with behavioral disturbances, history of aggressive behavior and agitation, history of schizophrenia, previous psychiatric hospitalizations, who presented to [facility] ED due to repetitive angry and combative outbursts at the [facility] she resides at. The patient is severely demented with no family at the bedside and was given Ativan as well as Haldol in the ED therefore the history is obtained from chart review. Patient has had multiple presentations to the ED for similar episodes per her sisters report, she has been seen by psychiatry in the past. Previously patient has been on Seroquel and Depakote but unclear when or why these medications were discontinued for not documented reasons. She was consulted to psychiatry to help with behavioral control. On psychiatric evaluation patient is restrained in 4 points, sedated, poorly cooperative. She is unable to participate in the psychiatric assessment due to the level of sedation. As per nurse in charge and PA, patient has been very combative, hostile, agitated and displaying an intense aggressive behavior. So far the only significant finding was a UTI. Review of Systems ROS Limitations: Uncooperative Past Family Social History Coded Allergies: Codeine (Verified Allergy, Unknown, 07/23/16) Reported Medications Valproic Acid Liq 250 Mg/5 Ml [id number] Mg PO BID #300 ML Ref 0 07/18/16 Risperidone Liq 1 Mg/Ml Soln0.25 Mg PO BID #30 ML Ref 0 07/18/16 Current Medications Medications (Trade) Dose Ordered Sig/[place] Route Start Time Stop Time Status Last Admin (NS Flush) 2 ml UNSCH PRN FLUSH 07/24/16 00:00 (NS Flush) 2 ml BID FLUSH 07/24/16 09:00 07/24/16 09:00 Naloxone HCl 0.4 mg 0.4 mg UNSCH PRN IV 07/24/16 00:00 (Rocephin Inj/NS Inj) 100 ml @ 200 mls/hr DAILY IV 07/25/16 09:00 Physical Exam Vital Signs Vital Signs Date Time Temp Pulse Resp B/P Pulse Ox O2 Delivery O2 Flow Rate FiO2 07/24/16 12:11 97.2 72 19 93/54 96 07/23/16 22:20 Room Air Mental Status Examination Patient sedated, unable to assess MSE Appearance woman, age appearing, restrained in 4 points, uncooperative Assessment & Plan Problem List: (1) Dementia with behavioral disturbance Assessment & Plan: MSE: Unable to be assess due to level of sedation Dx: Dementia with behavioral disturbances, delirium due to underlying medical condition Assessment/Plan: Patient shows aggressive behavior, agitation in the context of underline dimension and acute UTI. Behavioral dysregulation is most probably related to delirium secondary to UTI. Due to her history of aggressive behavior and agitation responsive to mood stabilizers, I don't see any reason to hold Depakote. Will restart Depakote 250 mg twice a day to control behavior. Order Haldol 2 mg IM every 8 hours when necessary aggressive behavior and agitation Please, avoid as much as you can benzodiazepines/anticholinergics/narcotic since his medication worsen cognitive impairment and sometimes increase agitation Case discussed with ER team. ICD Code: F03.91 Assessment & Plan Estimated LOS: days Problem Qualifiers (1) Dementia with behavioral disturbance: Qualified Code: G31.83 - Lewy body dementia with behavioral disturbance Warren Giang MD Jul 24, 2016 15:24
--- NOTE | 2016-07-24 16:44 | EKG ---
Date Performed: 07/23/2016 Time Performed: 22:35:40 PTAGE: 71 years EKG: Sinus rhythm Since previous tracing, no significant change noted NORMAL ECG PREVIOUS TRACING : 07/20/2016 16.49 DOCTOR: Eduardo Jama Interpretating Date/Time 07/24/2016 16:43:31
[2016-07-24] MEDS: DIVALPROEX SODIUM E.R. 250 MG TAB PO SCH (21:34)
[2016-07-25 04:00] VITALS: BP_SYST 116; BP_SYST 118; BP_DIAS 56; BP_DIAS 60; PULSE 66; PULSE 73; RESP 16; RESP 17; TEMP 97.3; TEMP 97.8; O2SAT 97; O2SAT 99
[2016-07-25 05:27] LABS: HEMATOCRIT 32.3 % (35.0-46.0); MEAN CELL VOLUME 74.7 FL (80.0-100.0); MEAN CORPUSCULAR HEMOGLOBIN 24.3 PG (27.0-34.0); MEAN CORPUSCULAR HGB CONC 32.5 % (32.0-36.0); PLATELET COUNT 75 TH/MM3 (150-450); RED BLOOD COUNT 4.32 MIL/MM3 (4.00-5.30); WHITE BLOOD COUNT 5.2 TH/MM3 (4.0-11.0)
[2016-07-25 05:32] LABS: REVIEW FLAG FINAL
[2016-07-25 06:19] LABS: BICARBONATE 26.1 MEQ/L (21.0-32.0); MAGNESIUM 1.9 MG/DL (1.5-2.5)
[2016-07-25 07:59] VITALS: BP 122/65; PULSE 95; RESP 19; TEMP 98
[2016-07-25] MEDS ORDERED: cefTRIAXone INJ 1,000 MG in SODIUM CHLORIDE 0.9% INJ 100 ML IV SCH (09:00)
[2016-07-25] MEDS: CIPROFLOXACIN 250 MG TAB PO SCH ×2 (10:53→21:00)
[2016-07-25] MEDS: DIVALPROEX SODIUM E.R. 250 MG TAB PO SCH ×2 (10:53→21:00)
[2016-07-25] MEDS: SODIUM CHLORIDE 0.9% FLUSH 5 ML FLUSH FLUSH SCH ×2 (10:53→21:00)
--- NOTE | 2016-07-25 12:15 | HHI.PR ---
Subjective Remarks Follow up on patient with dementia and delirium secondary to UTI with repetitive angry and combative outbursts at the [place] [facility] she resides at. Patient appears more coherent today. Able to make eye contact and responds, although inappropriately, to my questions. Denies any pain. Objective Vitals Vital Signs Date Time Temp Pulse Resp B/P Pulse Ox O2 Delivery O2 Flow Rate FiO2 07/25/16 07:59 98.0 95 19 122/65 07/25/16 04:00 97.8 73 16 116/60 97 07/24/16 23:26 72 07/24/16 20:14 99.1 107 17 145/92 96 07/24/16 16:07 98.3 107 18 116/58 07/24/16 12:11 97.2 72 19 93/54 96 Result Diagram: 07/25/[id number] Objective Remarks GENERAL: This is a well-nourished, well-developed patient, appears less sedated , more coherent today SKIN: No rashes, ecchymoses or lesions. Cool and dry. HEAD: Atraumatic. Normocephalic. No temporal or scalp tenderness. EYES: Pupils equal round and reactive. Extraocular motions intact. No scleral icterus. No injection or drainage. ENT: Nose without bleeding, purulent drainage or septal hematoma. Airway patent. NECK: Trachea midline. No JVD or lymphadenopathy. Supple, nontender, no meningeal signs. CARDIOVASCULAR: Regular rate and rhythm without murmurs, gallops, or rubs. RESPIRATORY: Clear to auscultation. Breath sounds equal bilaterally. No wheezes , rales, or rhonchi. GASTROINTESTINAL: Abdomen soft, non-tender, nondistended. No hepato-splenomegaly , or palpable masses. No guarding. MUSCULOSKELETAL: Extremities without clubbing, cyanosis, or edema. No joint tenderness, effusion, or edema noted. No calf tenderness. NEUROLOGICAL: Severe dementia. Medications and IVs Current Medications Medications (Trade) Dose Ordered Sig/[place] Route Start Time Stop Time Status Last Admin (NS Flush) 2 ml UNSCH PRN FLUSH 07/24/16 00:00 (NS Flush) 2 ml BID FLUSH 07/24/16 09:00 07/25/16 10:53 (Narcan Inj) 0.4 mg UNSCH PRN IV 07/24/16 00:00 (Haldol Inj) 2 mg Q8H PRN IM 07/24/16 15:30 (Depakote Er) 250 mg BID PO 07/24/16 21:00 07/25/16 10:53 (Cipro) 250 mg Q12HR PO 07/25/16 09:00 07/27/16 08:59 07/25/16 10:53 A/P Assessment and Plan 71 yo female with h/o Lewy Body Dementia who presented to [facility] ED due to repetitive angry and combative outbursts at the [place] [facility] she resides at. Dementia with behavioral disturbance/combative outbursts - Dr. Giang of psychiatry following - very much appreciate his assistance. Depakote restarted 250mg BID to control behavior. - c/w Haldol prn - Fall and aspiration precautions - avoid use of benzodiazepines - Case management consulted to assist with d/c plan/placement UTI - Urine cx shows no growth - D/C IV Rocephin, change to po Cipro x 2 days to complete course as may be contributing to patients recent decline in cognitive function Anemia - mild - iron studies indicative of STEVO, supplementation started - am labs to monitor trend DVT prophylaxis - bilateral SCD/PIETRO hose Discussed with Dr. Alford Attending Statement The exam, history, and the medical decision-making described in the above note were completed with the assistance of the mid-level provider. I reviewed and agree with the findings presented. I attest that I had a [id number] encounter with the patient on the same day, and personally performed and documented my assessment and findings in the medical record. Genet Singh PA-C Jul 25, 2016 12:15 Juan Alford MD Jul 25, 2016 22:53
[2016-07-25 18:32] VITALS: BP 108/59; PULSE 84; RESP 18; TEMP 98.9
[2016-07-25 21:08] VITALS: BP 112/55; PULSE 89; RESP 18; TEMP 96.9; O2SAT 95
[2016-07-25 23:29] VITALS: BP 138/77; PULSE 98; RESP 18; TEMP 97.9; O2SAT 93
[2016-07-26 04:36] VITALS: BP 124/65; PULSE 86; RESP 18; TEMP 96.7; O2SAT 93
[2016-07-26 08:25] VITALS: BP 106/59; PULSE 84; RESP 18; TEMP 97.5; O2SAT 95
[2016-07-26] MEDS: CIPROFLOXACIN 250 MG TAB PO SCH ×3 (08:41→10:37)
[2016-07-26] MEDS: SODIUM CHLORIDE 0.9% FLUSH 5 ML FLUSH FLUSH SCH ×2 (08:41→21:00)
[2016-07-26] MEDS: DIVALPROEX SODIUM E.R. 250 MG TAB PO SCH ×4 (08:41→16:00)
--- NOTE | 2016-07-26 09:30 | HHI.PR ---
Subjective Remarks Follow up on patient with Lewy Body Dementia and delirium secondary to UTI. Patients sensorium appears to be at baseline. Patient denies any complaints. States she is not hungry when asked if she would like to eat. Objective Vitals Vital Signs Date Time Temp Pulse Resp B/P Pulse Ox O2 Delivery O2 Flow Rate FiO2 07/26/16 08:25 97.5 84 18 106/59 95 07/26/16 04:36 96.7 86 18 124/65 93 07/25/16 23:29 97.9 98 18 138/77 93 07/25/16 21:08 96.9 89 18 112/55 95 07/25/16 18:32 98.9 84 18 108/59 Result Diagram: 07/25/1643907/25/16439 Objective Remarks GENERAL: This is a well-nourished, well-developed patient, awake, demented SKIN: No rashes, ecchymoses or lesions. Cool and dry. HEAD: Atraumatic. Normocephalic. No temporal or scalp tenderness. EYES: Pupils equal round and reactive. Extraocular motions intact. No scleral icterus. No injection or drainage. ENT: Nose without bleeding, purulent drainage or septal hematoma. Airway patent. NECK: Trachea midline. No JVD or lymphadenopathy. Supple, nontender, no meningeal signs. CARDIOVASCULAR: Regular rate and rhythm without murmurs, gallops, or rubs. RESPIRATORY: Clear to auscultation. Breath sounds equal bilaterally. No wheezes , rales, or rhonchi. GASTROINTESTINAL: Abdomen soft, non-tender, nondistended. No hepato-splenomegaly , or palpable masses. No guarding. MUSCULOSKELETAL: Extremities without clubbing, cyanosis, or edema. No joint tenderness, effusion, or edema noted. No calf tenderness. NEUROLOGICAL: Severe dementia, appears to be at baseline. Medications and IVs Current Medications Medications (Trade) Dose Ordered Sig/Papito Route Start Time Stop Time Status Last Admin (NS Flush) 2 ml UNSCH PRN FLUSH 07/24/16 00:00 (NS Flush) 2 ml BID FLUSH 07/24/16 09:00 07/26/16 08:41 (Narcan Inj) 0.4 mg UNSCH PRN IV 07/24/16 00:00 (Haldol Inj) 2 mg Q8H PRN IM 07/24/16 15:30 (Depakote Er) 250 mg BID PO 07/24/16 21:00 07/25/16 21:00 (Cipro) 250 mg Q12HR PO 07/25/16 09:00 07/27/16 08:59 07/25/16 21:00 A/P Assessment and Plan 71 yo female with h/o Lewy Body Dementia who presented to [facility] ED due to repetitive angry and combative outbursts at the [facility]. Dementia with behavioral disturbance/combative outbursts - Dr. Giang of psychiatry following - very much appreciate his assistance. Depakote restarted 250mg BID to control behavior, continue. - begin Haldol po scheduled, hold for sedation - Fall and aspiration precautions - avoid use of benzodiazepines - Case management consulted to assist with d/c plan/placement - plan for rehab at time of discharge, has reached out to [facility] who accepts patients insurance and has a dementia unit. Awaiting possible acceptance/bed availability. - c/w PT Poor po intake - secondary to above - ate lunch today - add Ensure shakes TID with meals - Studio Assistant consultation requested UTI - Urine cx shows no growth but UA positive for nitrites and many bacteria but urine culture showed no growth - d/c Cipro Anemia - mild, improving - iron studies indicative of STEVO, supplementation initiated this admission, continue - am labs to monitor trend DVT prophylaxis - bilateral SCD/PIETRO hose Discussed with Dr. Alford Attending Statement The exam, history, and the medical decision-making described in the above note were completed with the assistance of the mid-level provider. I reviewed and agree with the findings presented. I attest that I had a [id number] encounter with the patient on the same day, and personally performed and documented my assessment and findings in the medical record. Genet Singh PA-C Jul 26, 2016 09:30 Juan Alford MD Jul 27, 2016 08:51
[2016-07-26 13:02] VITALS: BP 125/71; PULSE 92; RESP 18; TEMP 98; O2SAT 94
[2016-07-26] MEDS: HALOPERIDOL LACTATE 5 MG/ML AMP IM PRN (13:25)
[2016-07-26 17:10] VITALS: BP 125/62; PULSE 90; RESP 18; TEMP 97.5; O2SAT 100
[2016-07-26] MEDS ORDERED: HALOPERIDOL LACTATE 5 MG/ML AMP IV PUSH ONE (20:15)
[2016-07-26] MEDS: HALOPERIDOL 2 MG TAB PO SCH (21:00)
[2016-07-27] MEDS ORDERED: HALOPERIDOL LACTATE 5 MG/ML AMP IV ONE (05:00)
[2016-07-27 07:49] LABS: AUTOMATED NEUTROPHIL # 3.7 TH/MM3 (1.8-7.7); BASOPHIL % 0.3 % (0.0-2.0); EOSINOPHIL % 0.4 % (0.0-4.0); HEMATOCRIT 32.2 % (35.0-46.0); LYMPH % 21.2 % (9.0-44.0); LYMPHOCYTE # 1.2 TH/MM3 (1.0-4.8); MEAN CELL VOLUME 73.8 FL (80.0-100.0); MEAN CORPUSCULAR HEMOGLOBIN 23.9 PG (27.0-34.0); MEAN CORPUSCULAR HGB CONC 32.3 % (32.0-36.0); MONO % 15.6 % (0.0-8.0); NEUT % 62.5 % (16.0-70.0); PLATELET COUNT 95 TH/MM3 (150-450); RED BLOOD COUNT 4.36 MIL/MM3 (4.00-5.30); WHITE BLOOD COUNT 5.9 TH/MM3 (4.0-11.0)
[2016-07-27 08:02] LABS: HEMO FLAGS AUTO DIFF
[2016-07-27 08:10] VITALS: BP 118/55; PULSE 73; RESP 17; TEMP 97.6; O2SAT 100
[2016-07-27 08:10] LABS: BICARBONATE 26.6 MEQ/L (21.0-32.0); POTASSIUM 3.9 MEQ/L (3.5-5.1)
--- NOTE | 2016-07-27 08:40 | HHI.PR ---
Subjective Remarks Follow up for Dementia with agitation, UTI. The patient is sleeping upon my arrival, awakens to voice and light touch. She has no medical complaints including no headache, lightheadedness, dizziness, chest pain, shortness of breath, or abdominal complaints. Objective Vitals Vital Signs Date Time Temp Pulse Resp B/P Pulse Ox O2 Delivery O2 Flow Rate FiO2 07/26/16 17:10 97.5 90 18 125/62 100 07/26/16 13:02 98.0 92 18 125/71 94 Result Diagram: 07/27/16 0621 07/27/16 0631 Imaging Last Impressions Chest X-Ray 07/23/16 1840 Signed Impressions: Service Date/Time: Saturday, July 23, 2016 19:56 - CONCLUSION: No evidence of acute cardiopulmonary disease. Eric Lugo MD Objective Remarks GENERAL: Well-nourished, well-developed elderly female patient in [facility]. Pleasantly demented SKIN: Warm and dry. No rash. HEENT: Normocephalic. Atraumatic. Pupils equal and round. No scleral icterus. No injection or drainage. Mucous membranes pink and moist. NECK: Supple. Trachea midline. CARDIOVASCULAR: Regular rate and rhythm. S1, S2 noted. No murmur appreciated. RESPIRATORY: No accessory muscle use. Clear to auscultation. Breath sounds equal bilaterally. GASTROINTESTINAL: Abdomen soft, non-tender, nondistended. Normoactive bowel sounds x4. MUSCULOSKELETAL: No obvious deformities. Extremities without clubbing, cyanosis , or edema. NEUROLOGICAL: Awake and alert. No obvious cranial nerve deficits. Motor grossly within normal limits. Normal speech. PSYCHIATRIC: Appropriate mood and affect; insight and judgment limited. Medications and IVs Current Medications Medications (Trade) Dose Ordered Sig/Papito Route Start Time Stop Time Status Last Admin (NS Flush) 2 ml UNSCH PRN FLUSH 07/24/16 00:00 (NS Flush) 2 ml BID FLUSH 07/24/16 09:00 07/26/16 21:00 (Narcan Inj) 0.4 mg UNSCH PRN IV 07/24/16 00:00 (Haldol Inj) 2 mg Q8H PRN IM 07/24/16 15:30 07/26/16 13:25 (Depakote Er) 250 mg BID PO 07/24/16 21:00 07/26/16 16:00 (Haldol) 2 mg BID PO 07/26/16 21:00 Urinary Catheter: No Vascular Central Line Catheter: No A/P Assessment and Plan 71 yo female with h/o Lewy Body Dementia who presented to [facility] ED due to repetitive angry and combative outbursts at the [facility] she [facility]. Dementia with behavioral disturbance/combative outbursts - Consulted psychiatry, seen by Dr. Giang, appreciate assistance. - Depakote restarted 250mg BID to control behavior. - begin Haldol po scheduled, hold for sedation - Fall precautions - avoid use of benzodiazepines - Case management consulted to assist with d/c plan/placement - plan for rehab at time of discharge, CM has reached out to [facility] who accepts patients insurance and has a dementia unit. Awaiting possible acceptance/bed availability. - c/w PT Poor po intake - secondary to above - add Ensure shakes TID with meals - Furnace Fitter consultation requested UTI - Urine cx shows no growth but UA positive for nitrites and many bacteria but urine culture showed no growth - d/c Cipro Anemia - mild, improving - iron studies indicative of STEVO, supplementation initiated this admission, continue - CBC stable DVT prophylaxis - bilateral SCD/PIETRO Discussed with Dr. Alford. Bettina Naik PA-C Jul 27, 2016 08:40
[2016-07-27 08:41] LABS: PLATELET ESTIMATE SMEAR LOW (NORMAL); PLATELET MORPHOLOGY NORMAL (NORMAL); SCAN/DIFF AUTO DIFF CONFIRMED
[2016-07-27] MEDS: SODIUM CHLORIDE 0.9% FLUSH 5 ML FLUSH FLUSH SCH ×2 (09:35→20:27)
[2016-07-27] MEDS: DIVALPROEX SODIUM E.R. 250 MG TAB PO SCH ×2 (09:35→20:26)
[2016-07-27] MEDS: HALOPERIDOL 2 MG TAB PO SCH ×2 (09:35→20:26)
[2016-07-27 12:15] VITALS: BP 118/80; PULSE 101; RESP 16; TEMP 95.5; O2SAT 93
[2016-07-27] MEDS: SODIUM CHLOR 0.9% 1000 ML INJ 1,000 ML IV SCH (14:12)
[2016-07-27 14:24] VITALS: BP 153/64; PULSE 80; RESP 18; TEMP 97.3; O2SAT 95
[2016-07-27 20:23] VITALS: BP 162/70; PULSE 87; RESP 18; TEMP 97.2; O2SAT 94
[2016-07-28 00:41] VITALS: BP 116/58; PULSE 72; RESP 16; TEMP 97.9; O2SAT 97
[2016-07-28] MEDS: SODIUM CHLOR 0.9% 1000 ML INJ 1,000 ML IV SCH (04:22)
[2016-07-28 05:23] VITALS: BP 123/63; PULSE 77; RESP 16; TEMP 97.5; O2SAT 95
[2016-07-28 07:03] LABS: AUTOMATED NEUTROPHIL # 2.5 TH/MM3 (1.8-7.7); BASOPHIL % 0.4 % (0.0-2.0); HEMATOCRIT 28.2 % (35.0-46.0); LYMPH % 26.3 % (9.0-44.0); LYMPHOCYTE # 1.1 TH/MM3 (1.0-4.8); MEAN CELL VOLUME 73.6 FL (80.0-100.0); MEAN CORPUSCULAR HEMOGLOBIN 23.9 PG (27.0-34.0); MEAN CORPUSCULAR HGB CONC 32.4 % (32.0-36.0); MONO % 14.2 % (0.0-8.0); NEUT % 58.1 % (16.0-70.0); PLATELET COUNT 82 TH/MM3 (150-450); RED BLOOD COUNT 3.83 MIL/MM3 (4.00-5.30); RED CELL DISTRIBUTION WIDTH 16.8 % (11.6-17.2); WHITE BLOOD COUNT 4.3 TH/MM3 (4.0-11.0)
[2016-07-28 07:18] LABS: BICARBONATE 26.6 MEQ/L (21.0-32.0); POTASSIUM 3.9 MEQ/L (3.5-5.1)
[2016-07-28 08:00] VITALS: BP 148/69; PULSE 87; RESP 18; TEMP 97.8; O2SAT 95
[2016-07-28 08:04] LABS: HEMO FLAGS AUTO DIFF
[2016-07-28] MEDS: SODIUM CHLORIDE 0.9% FLUSH 5 ML FLUSH FLUSH SCH ×2 (09:00→20:31)
[2016-07-28] MEDS: DIVALPROEX SODIUM E.R. 250 MG TAB PO SCH ×2 (10:17→20:31)
[2016-07-28] MEDS: HALOPERIDOL 2 MG TAB PO SCH ×2 (10:18→20:31)
[2016-07-28 12:00] VITALS: BP 148/82; PULSE 99; RESP 20; TEMP 97.5; O2SAT 94
[2016-07-28 12:49] LABS: PLATELET ESTIMATE SMEAR LOW (NORMAL); PLATELET MORPHOLOGY NORMAL (NORMAL); SCAN/DIFF AUTO DIFF CONFIRMED
[2016-07-28] MEDS ORDERED: DIVA250ER PO (13:01)
[2016-07-28] MEDS ORDERED: HALO2TAB PO (13:01)
--- NOTE | 2016-07-28 13:04 | HHI.PR ---
Subjective Remarks Follow-up for dementia with agitation, UTI. Patient is seen sitting in the bedside couch, looking out the window. She has no medical complaints. She has been ambulating her room without difficulty. PLUMBING ASSEMBLER reports the patient ate some of her breakfast and also has been drinking all of her Ensure shakes. She has been taking her oral medications. No acute concerns overnight. Objective Vitals Vital Signs Date Time Temp Pulse Resp B/P Pulse Ox O2 Delivery O2 Flow Rate FiO2 07/28/16 12:00 97.5 99 20 148/82 94 07/28/16 08:00 97.8 87 18 148/69 95 07/28/16 05:23 Room Air 07/28/16 05:23 97.5 77 16 123/63 95 07/28/16 00:41 Room Air 07/28/16 00:41 97.9 72 16 116/58 97 07/27/16 20:23 97.2 87 18 162/70 94 07/27/16 20:23 Room Air 07/27/16 14:24 97.3 80 18 153/64 95 I/O 07/27/16 07/27/16 07/27/16 07/28/16 07/28/16 07/28/16 07:00 15:00 23:00 07:00 15:00 23:00 Intake Total 500 ml 1290 ml Output Total 300 ml Balance 500 ml -300 ml 1290 ml Intake Oral 500 ml 700 ml IV Total 590 ml Output Urine Total 300 ml # Voids 2 2 # Bowel Movements 0 Result Diagram: 07/28/16 0602 07/28/16 0602 Imaging Last Impressions Chest X-Ray 07/23/16 1840 Signed Impressions: Service Date/Time: Saturday, July 23, 2016 19:56 - CONCLUSION: No evidence of acute cardiopulmonary disease. Eric Lugo MD Objective Remarks GENERAL: Well-nourished, well-developed elderly female patient in [facility]. Pleasantly demented. SKIN: Warm and dry. No rash. HEENT: Normocephalic. Atraumatic. Pupils equal and round. No scleral icterus. No injection or drainage. Mucous membranes pink and moist. NECK: Supple. Trachea midline. CARDIOVASCULAR: Regular rate and rhythm. S1, S2 noted. No murmur appreciated. RESPIRATORY: No accessory muscle use. Clear to auscultation. Breath sounds equal bilaterally. GASTROINTESTINAL: Abdomen soft, non-tender, nondistended. Normoactive bowel sounds x4. MUSCULOSKELETAL: No obvious deformities. Extremities without clubbing, cyanosis , or edema. NEUROLOGICAL: Awake and alert. No obvious cranial nerve deficits. Motor grossly within normal limits. Normal speech. PSYCHIATRIC: Appropriate mood and affect; insight and judgment limited. Medications and IVs Current Medications Medications (Trade) Dose Ordered Sig/Papito Route Start Time Stop Time Status Last Admin (NS Flush) 2 ml UNSCH PRN FLUSH 07/24/16 00:00 (NS Flush) 2 ml BID FLUSH 07/24/16 09:00 07/27/16 20:27 (Narcan Inj) 0.4 mg UNSCH PRN IV 07/24/16 00:00 (Haldol Inj) 2 mg Q8H PRN IM 07/24/16 15:30 07/26/16 13:25 (Depakote Er) 250 mg BID PO 07/24/16 21:00 07/28/16 10:17 Haloperidol 2 mg 2 mg BID PO 07/26/16 21:00 07/28/16 10:18 (NS 1000 ml Inj) 1,000 ml @ 84 mls/hr [id number] IV 07/27/16 14:00 07/28/16 04:22 Urinary Catheter: No Vascular Central Line Catheter: No A/P Assessment and Plan 71 yo female with h/o Lewy Body Dementia who presented to [facility] ED due to repetitive angry and combative outbursts at the group home she resides at. Dementia with behavioral disturbance/combative outbursts - Consulted psychiatry, seen by Dr. Giang, appreciate assistance. - Depakote restarted 250mg BID to control behavior. - begin Haldol po scheduled, hold for sedation - Fall precautions - avoid use of benzodiazepines - Case management consulted to assist with d/c plan/placement - plan for rehab vs dementia unit at time of discharge, Awaiting possible acceptance/bed availability. - c/w PT Poor po intake - secondary to above - add Ensure shakes TID with meals, patient tolerating well - Correspondence Analyst consultation requested UTI - Urine cx shows no growth but UA positive for nitrites and many bacteria but urine culture showed no growth - d/c Cipro Anemia - mild, improving - iron studies indicative of STEVO, supplementation initiated this admission, continue - CBC stable LINDSEY - Cr 1.14 on 07/27, previously 0.67 on 07/25 - likely secondary to poor oral intake - given IVF, patient now tolerating oral intake - repeat Cr 0.68, resolved - discontinue IVF. DVT prophylaxis - bilateral SCD/PIETRO, patient ambulatory Discussed with Dr. Alford. Discharge Planning Discharge when accepted to facility. Case management assisting. Attending Statement The exam, history, and the medical decision-making described in the above note were completed with the assistance of the mid-level provider. I reviewed and agree with the findings presented. I attest that I had a [id number] encounter with the patient on the same day, and personally performed and documented my assessment and findings in the medical record. Bettina Naik PA-C Jul 28, 2016 13:04 Juan Alford MD Jul 30, 2016 03:13
[2016-07-28 16:00] VITALS: BP 112/53; PULSE 74; RESP 18; TEMP 97.2; O2SAT 94
[2016-07-28] MEDS: HALOPERIDOL LACTATE 5 MG/ML AMP IM PRN (17:13)
[2016-07-28 20:00] VITALS: BP 127/69; PULSE 80; RESP 16; TEMP 97.2; O2SAT 95
[2016-07-29] VITALS: BP 103/51; PULSE 71; RESP 16; TEMP 98; O2SAT 95
[2016-07-29 04:00] VITALS: BP 133/64; PULSE 75; RESP 18; TEMP 97.5; O2SAT 95
[2016-07-29 08:00] VITALS: BP 127/65; PULSE 75; RESP 12; TEMP 97.3; O2SAT 96
[2016-07-29] MEDS: DIVALPROEX SODIUM E.R. 250 MG TAB PO SCH ×2 (09:13→20:52)
[2016-07-29] MEDS: HALOPERIDOL 2 MG TAB PO SCH ×2 (09:13→20:52)
[2016-07-29] MEDS: SODIUM CHLORIDE 0.9% FLUSH 5 ML FLUSH FLUSH SCH ×2 (09:13→20:54)
[2016-07-29 12:00] VITALS: BP 92/55; PULSE 73; RESP 20; TEMP 97.3; O2SAT 97
--- NOTE | 2016-07-29 15:11 | HHI.PR ---
Subjective Remarks Follow up for dementia with agitation. The patient is seen sitting upright in bed, eating [employer]. Her sister is at bedside. No acute events overnight. She has been taking all of her medications. She has been eating small meals. She had a regular BM today per sitter at bedside. She has been well behaved. Objective Vitals Vital Signs Date Time Temp Pulse Resp B/P Pulse Ox O2 Delivery O2 Flow Rate FiO2 07/29/16 12:00 97.3 73 20 92/55 97 07/29/16 09:32 Room Air 07/29/16 08:00 97.3 75 12 127/65 96 07/29/16 04:00 Room Air 07/29/16 04:00 97.5 75 18 133/64 95 07/29/16 00:00 98.0 71 16 103/51 95 07/29/16 00:00 Room Air 07/28/16 20:00 Room Air 07/28/16 20:00 97.2 80 16 127/69 95 07/28/16 16:00 97.2 74 18 112/53 94 I/O 07/28/16 07/28/16 07/28/16 07/29/16 07/29/16 07/29/16 07:00 15:00 23:00 07:00 15:00 23:00 Intake Total 1290 ml 480 ml 100 ml 120 ml 1510 ml Balance 1290 ml 480 ml 100 ml 120 ml 1510 ml Intake Oral 700 ml 480 ml 120 ml 1510 ml IV Total 590 ml 100 ml # Voids 2 2 1 1 # Bowel Movements 1 0 1 Result Diagram: 07/28/16 0602 07/28/16 0602 Imaging Last Impressions Chest X-Ray 07/23/16 1840 Signed Impressions: Service Date/Time: Saturday, July 23, 2016 19:56 - CONCLUSION: No evidence of acute cardiopulmonary disease. Eric Lugo MD Objective Remarks GENERAL: Well-nourished, well-developed elderly female patient in [facility]. Pleasantly demented. SKIN: Warm and dry. No rash. HEENT: Normocephalic. Atraumatic. Pupils equal and round. No scleral icterus. No injection or drainage. Mucous membranes pink and moist. NECK: Supple. Trachea midline. CARDIOVASCULAR: Regular rate and rhythm. S1, S2 noted. No murmur appreciated. RESPIRATORY: No accessory muscle use. Clear to auscultation. Breath sounds equal bilaterally. GASTROINTESTINAL: Abdomen soft, non-tender, nondistended. Normoactive bowel sounds x4. MUSCULOSKELETAL: No obvious deformities. Extremities without clubbing, cyanosis , or edema. NEUROLOGICAL: Awake and alert. No obvious cranial nerve deficits. Motor grossly within normal limits. PSYCHIATRIC: Appropriate mood and affect; insight and judgment limited. Medications and IVs Current Medications Medications (Trade) Dose Ordered Sig/Papito Route Start Time Stop Time Status Last Admin (NS Flush) 2 ml UNSCH PRN FLUSH 07/24/16 00:00 (NS Flush) 2 ml BID FLUSH 07/24/16 09:00 07/29/16 09:13 (Narcan Inj) 0.4 mg UNSCH PRN IV 07/24/16 00:00 (Haldol Inj) 2 mg Q8H PRN IM 07/24/16 15:30 07/28/16 17:13 (Depakote Er) 250 mg BID PO 07/24/16 21:00 07/29/16 09:13 (Haldol) 2 mg BID PO 07/26/16 21:00 07/29/16 09:13 Urinary Catheter: No Vascular Central Line Catheter: No A/P Assessment and Plan 71 yo female with h/o Lewy Body Dementia who presented to [facility] ED due to repetitive angry and combative outbursts at the [facility] she [facility]. Dementia with behavioral disturbance/combative outbursts - Consulted psychiatry, seen by Dr. Giang, appreciate assistance. - Depakote restarted 250mg BID to control behavior. - begin Haldol po scheduled, hold for sedation - Fall precautions - avoid use of benzodiazepines - Case management consulted to assist with d/c plan/placement - plan for rehab vs dementia unit at time of discharge, Awaiting possible acceptance/bed availability. - Mood much improved, taking her medications regularly Poor po intake - secondary to above - add Ensure shakes TID with meals, patient tolerating well - Toolroom Checker consultation requested - oral intake improving UTI - Urine cx shows no growth but UA positive for nitrites and many bacteria but urine culture showed no growth - d/c Cipro Anemia - mild, improving - iron studies indicative of STEVO, supplementation initiated this admission, continue - CBC stable LINDSEY - Cr 1.14 on 07/27, previously 0.67 on 07/25 - likely secondary to poor oral intake - given IVF, patient now tolerating oral intake - repeat Cr 0.68, resolved - discontinue IVF. DVT prophylaxis - bilateral SCD/PIETRO, patient ambulatory Discussed with Dr. Alford. Discharge Planning Discharge when accepted to facility. Case management assisting. Attending Statement The exam, history, and the medical decision-making described in the above note were completed with the assistance of the mid-level provider. I reviewed and agree with the findings presented. I attest that I had a [id number] encounter with the patient on the same day, and personally performed and documented my assessment and findings in the medical record. Bettina Naik PA-C Jul 29, 2016 15:11 Juan Alford MD Jul 30, 2016 02:50
[2016-07-29 16:00] VITALS: BP 128/61; PULSE 80; RESP 20; TEMP 97.6; O2SAT 97
[2016-07-29 20:00] VITALS: BP 124/71; PULSE 85; RESP 18; TEMP 98.3; O2SAT 96
[2016-07-30 04:00] VITALS: BP 127/81; PULSE 95; RESP 18; TEMP 98; O2SAT 97
[2016-07-30] MEDS: HALOPERIDOL 2 MG TAB PO SCH ×2 (07:59→20:16)
[2016-07-30] MEDS: SODIUM CHLORIDE 0.9% FLUSH 5 ML FLUSH FLUSH SCH ×2 (07:59→20:16)
[2016-07-30] MEDS: DIVALPROEX SODIUM E.R. 250 MG TAB PO SCH ×2 (07:59→20:16)
[2016-07-30 08:00] VITALS: BP 111/55; PULSE 74; RESP 16; TEMP 97.7; O2SAT 96
[2016-07-30 12:00] VITALS: BP 97/57; PULSE 77; RESP 12; TEMP 97.9; O2SAT 97
[2016-07-30 16:00] VITALS: BP 105/56; PULSE 74; RESP 12; TEMP 97.3; O2SAT 95
[2016-07-30 20:00] VITALS: BP 138/76; PULSE 94; RESP 18; TEMP 98.1; O2SAT 97
--- NOTE | 2016-07-30 22:45 | HHI.PR ---
Subjective Remarks Patient seen this morning around 11 AM. Patient confused, however pleasant homeland traction this morning. Denies any pain. Denies any nausea or vomiting. Eating well. Objective Vital Signs Date Time Temp Pulse Resp B/P Pulse Ox O2 Delivery O2 Flow Rate FiO2 07/30/16 20:00 98.1 94 18 138/76 97 07/30/16 16:00 97.3 74 12 105/56 95 07/30/16 12:00 97.9 77 12 97/57 97 07/30/16 08:00 97.7 74 16 111/55 96 07/30/16 07:30 Room Air 07/30/16 04:00 Room Air 07/30/16 04:00 98.0 95 18 127/81 97 I/O 07/29/16 07/29/16 07/29/16 07/30/16 07/30/16 07/30/16 07:00 15:00 23:00 07:00 15:00 23:00 Intake Total 120 ml 1510 ml 480 ml 1295 ml Balance 120 ml 1510 ml 480 ml 1295 ml Intake Oral 120 ml 1510 ml 480 ml 1295 ml # Voids 1 1 0 4 3 # Bowel Movements 0 1 0 0 0 Result Diagram: 07/28/16 0607/28/16 06 Objective Remarks GENERAL: confused. Appears comfortable. Alert. Disoriented. Cooperative. SKIN: Warm and dry. HEAD: Normocephalic. EYES: No scleral icterus. No injection or drainage. NECK: Supple, trachea midline. No JVD. CARDIOVASCULAR: Regular rate and rhythm without murmurs, gallops, or rubs. RESPIRATORY: Breath sounds equal bilaterally. No accessory muscle use. GASTROINTESTINAL: Abdomen soft, non-tender, nondistended. MUSCULOSKELETAL: No cyanosis, or edema. BACK: Nontender without obvious deformity. No CVA tenderness. A/P Assessment and Plan 71 yo female with h/o Lewy Body Dementia who presented to [facility] ED due to repetitive angry and combative outbursts at the snf she resides at. Dementia with behavioral disturbance/combative outbursts - Consulted psychiatry, seen by Dr. Giang, appreciate assistance. - Depakote restarted 250mg BID to control behavior. - begin Haldol po scheduled, hold for sedation - Fall precautions - avoid use of benzodiazepines - Case management consulted to assist with d/c plan/placement - plan for rehab vs dementia unit at time of discharge, Awaiting possible acceptance/bed availability. - Mood much improved, taking her medications regularly = No acute changes. Continues with stable mood off restraints. Poor po intake - secondary to above - add Ensure shakes TID with meals, patient tolerating well - Fuel Management Handler consultation requested - oral intake continues improving UTI - Urine cx shows no growth but UA positive for nitrites and many bacteria but urine culture showed no growth - d/cd Cipro Anemia - mild, improving - iron studies indicative of STEVO, supplementation initiated this admission, continue - CBC stable LINDSEY - Cr 1.14 on 07/27, previously 0.67 on 07/25 - likely secondary to poor oral intake - given IVF, patient now tolerating oral intake - repeat Cr 0.68, resolved - discontinue IVF. DVT prophylaxis - bilateral SCD/PIETRO, patient ambulatory Discharge Planning possible discharge when arranged by case management. Juan Alford MD Jul 30, 2016 22:45
[2016-07-31 04:00] VITALS: BP 129/74; PULSE 90; RESP 16; TEMP 97.4; O2SAT 97
[2016-07-31 08:00] VITALS: BP 139/73; PULSE 104; RESP 18; O2SAT 97
[2016-07-31] MEDS: HALOPERIDOL 2 MG TAB PO SCH (08:12)
[2016-07-31] MEDS: DIVALPROEX SODIUM E.R. 250 MG TAB PO SCH (08:13)
[2016-07-31] MEDS: SODIUM CHLORIDE 0.9% FLUSH 5 ML FLUSH FLUSH SCH (08:13)
[2016-07-31 12:00] VITALS: BP 142/90; PULSE 101; RESP 20; O2SAT 97
--- NOTE | 2016-08-06 01:20 | HHI.DS ---
Discharge Summary Admission Date Jul 23, 2016 at 23:57 Discharge Date: Jul 31, 2016 Admitting Diagnosis UTI, Altered mental status, Behavioral disorder. (1) Urinary tract infection ICD Code: N39.0 (2) Agitation requiring sedation protocol ICD Code: R45.1 (3) Dementia with behavioral disturbance ICD Code: F03.91 Procedures no invasive procedures Brief History - From Admission 71 yo female with h/o Lewy Body Dementia who presented to [facility] ED due to repetitive angry and combative outbursts at the assisted she resides at. The patient is severely demented with no family at the bedside and was given Ativan as well as Haldol in the ED therefore the history is obtained from chart review. Patient has had multiple presentations to the ED for similar episodes per her sisters report. Previously patient has been on Seroquel and Depakote but unclear when or why these medications were discontinued. Additionally, she has been on benzodiazepine in the past but this was stopped as well. Patient had a head CT scan 07/18/16 which failed to show any acute findings. Imaging Last Impressions Chest X-Ray 07/23/16 1840 Signed Impressions: Service Date/Time: Saturday, July 23, 2016 19:56 - CONCLUSION: No evidence of acute cardiopulmonary disease. Eric Lugo MD PE at Discharge GENERAL: confused. Appears comfortable. Alert. Disoriented. Cooperative.no appreciable change from day prior. SKIN: Warm and dry. HEAD: Normocephalic. EYES: No scleral icterus. No injection or drainage. NECK: Supple, trachea midline. No JVD. CARDIOVASCULAR: Regular rate and rhythm without murmurs, gallops, or rubs. RESPIRATORY: Breath sounds equal bilaterally. No accessory muscle use. GASTROINTESTINAL: Abdomen soft, non-tender, nondistended. MUSCULOSKELETAL: No cyanosis, or edema. BACK: Nontender without obvious deformity. No CVA tenderness. Pt update on day of discharge patient confused as before. Cooperative. Denies any pain. Hospital Course Urine culture with no growth. Discontinued antibiotics. For agitation, psychiatry was consulted, and antipsychotic medication adjusted, with improvement.. Depakote twice daily, Haldol twice daily. Agitation improved, and patient was discharged back to SNF. Patient did have an acute kidney injury on admission, which resolved to baseline with better by mouth intake. For problem-based summary from most recent progress note, please see below. 71 yo female with h/o Lewy Body Dementia who presented to [facility] ED due to repetitive angry and combative outbursts at the assisted she resides at. Dementia with behavioral disturbance/combative outbursts - Consulted psychiatry, seen by Dr. Giang, appreciate assistance. - Depakote restarted 250mg BID to control behavior. - begin Haldol po scheduled, hold for sedation - Fall precautions - avoid use of benzodiazepines - Case management consulted to assist with d/c plan/placement - plan for rehab vs dementia unit at time of discharge, Awaiting possible acceptance/bed availability. - Mood much improved, taking her medications regularly = No acute changes. Continues with stable mood off restraints. Poor po intake - secondary to above - add Ensure shakes TID with meals, patient tolerating well - Api Architect consultation requested - oral intake continues improving UTI - Urine cx shows no growth but UA positive for nitrites and many bacteria but urine culture showed no growth - d/cd Cipro Anemia - mild, improving - iron studies indicative of STEVO, supplementation initiated this admission, continue - CBC stable LINDSEY - Cr 1.14 on 07/27, previously 0.67 on 07/25 - likely secondary to poor oral intake - given IVF, patient now tolerating oral intake - repeat Cr 0.68, resolved - discontinue IVF. DVT prophylaxis - bilateral SCD/PIETRO, patient ambulatory Discharge Planning possible discharge when arranged by case management. Pt Condition on Discharge: Stable Discharge Disposition: Discharge to SNF Discharge Time: <= 30 minutes Discharge Instructions DIET: Follow Instructions for: As Tolerated, No Restrictions Additional Diet Instructions: Add Ensure shakes to meals. Activities you can perform: Regular-No Restrictions Follow up Referrals: PCP Follow-up - 1 Week New Medications: Divalproex ER (Depakote ER) 250 Mg Daniel 250 MG PO BID Control Mood Swing #60 TAB Haloperidol (Haloperidol) 2 Mg Tab 2 MG PO BID Control Mood Swing #60 TAB Discontinued Medications: Risperidone Liq (Risperidone Liq) 1 Mg/Ml Soln 0.25 MG PO BID #30 Ref 0 ML Valproic Acid Liq (Valproic Acid Liq) 250 Mg/5 Ml Syp 250 MG PO BID #300 Ref 0 ML Juan Alford MD Aug 06, 2016 01:20
== END 2016-07-31 14:10 ==
LOC: NEPA 18:07 → NEDA 23:57 → NEPGCP 07-24 02:00 → N04A 07-27 14:24 → N04B 07-30 19:05
PROVIDERS: ADMIT Internal Medicine; ATTEND Internal Medicine
DX: F02.81 Dementia in other diseases classified elsewhere, unspecified severity, with behavioral disturbance (principal); R45.1 Restlessness and agitation; G31.83 Neurocognitive disorder with Lewy bodies; N39.0 Urinary tract infection, site not specified; G30.9 Alzheimer's disease, unspecified; F05 Delirium due to known physiological condition; F20.9 Schizophrenia, unspecified; R94.31 Abnormal electrocardiogram [ECG] [EKG]; D64.9 Anemia, unspecified; Z78.1 Physical restraint status
CPT/HCPCS: 71010; 76937; 80048; 80053; 81001; 82607; 82728; 83540; 83550; 83735; 84443; 84466; 84484; 85007; 85025; 85027; 85610; 85730; 87086; 93005; 96365; 96372; 96375; 97110; 97116; 97162; 97530; 99285; G0378; G8987; G8988; J0696; J1630; J2060; J7030; P9612